=== PATIENT | male | born 2000 | race Caucasian/White ===

== ENCOUNTER 2022-09-01 12:16 | Inpatient (IN) ==
[2022-09-01] MEDS ORDERED: KETOROLAC TROMETHAMINE 15 MG/ML VIAL IV STA (13:11)
[2022-09-01] MEDS ORDERED: SODIUM CHLORIDE 0.9% 1000ML 1,000 ML IV STA (13:11)
--- NOTE | 2022-09-01 13:14 | Emergency Department Note ---
ED Provider Note History of Present Illness Chief Complaint: Vomiting Stated Complaint: VOMITING Time Seen by Provider: 09/01/22 12:58 22-year-old male who presents to the emergency department for evaluation of an illness for the past 6 days. The patient reports that his symptoms started this past Friday with chills, fatigue, nausea and watery diarrhea. Over the past few days, he reports developing notable productive cough and sore throat. He has also had some blood when blowing his nose. The patient was seen at the [facility] urgent care [place] earlier in the week with a negative rapid COVID, flu and strep test. The patient was prescribed Zofran without any significant relief of his nausea. The patient rates his overall discomfort a 9 out of 10. He has not checked his temperature at home, but has been chilled. The patient has been able to tolerate some fluids. Allergies Allergy/AdvReac Type Severity Reaction Status Date / Time No Known Allergies Allergy Verified 09/01/22 15:10 Past Med/Surg History Medical History No significant past medical history Surgical History No significant past surgical history Social History Smoking Status: Never smoker Second Hand Exposure: No; Do You Dip or Chew Tobacco: No; Tobacco Cessation Education Requested by Patient: No Hx Alcohol Use: Yes Hx Substance Use: No Preferred Language: Thai Communication Ability: Effective Mental Health Tech Required: No Beliefs That Will Affect Care: None marital status: Single Current Living Situation: Other Current Living Situation Comment: College student current occupational status: student Other Information That Helps Us Care for You: No Feels Safe at Home: Yes Safety Concerns: Feels Safe At This Time Assistive Devices: None Physical Exam Vital Signs Vital Signs - 24 hr 09/01/22 12:21 Temperature 36.9 C Temperature Source Oral Pulse Rate 101 H Respiratory Rate 20 Respiratory Depth Normal Blood Pressure 106/69 Blood Pressure Mean 81 Blood Pressure Position Sitting Pulse Oximetry 98 Oxygen Delivery Method Room Air Sepsis Recent Fever Within 48 Hours No Sepsis New/Unexplained Change in Mental Status No Sepsis Action Taken by Nursing No Action Required CONSTITUTIONAL: Healthy and well nourished. Patient does not appear toxic. HEENT: Mild rhinorrhea is noted. Examination of the ears that showed TM bulging without air-fluid levels or erythema. Examination the oropharynx shows mild posterior pharyngeal erythema without tonsillar hypertrophy, exudates or postnasal drip. Mucous membranes are dry. NECK: Full active range of motion without discomfort. No JVD or carotid bruit. LYMPHATICS: No cervical chain adenopathy. RESPIRATORY: Clear to auscultation bilaterally with no wheezing, crackles, rhonchi or stridor. CARDIOVASCULAR: Regular rate and rhythm with no murmurs, rubs or gallops. GASTROINTESTINAL: Bowel sounds present in all quadrants. Patient has minimal and generalized abdominal tenderness palpation. Negative McBurney's point tenderness. Negative CVA tenderness. MUSCULOSKELETAL: Full range of motion of all joints without discomfort. INTEGUMENTARY: No rash or other significant dermatologic conditions noted. HEMATOLOGIC: No ecchymosis or petechiae. PSYCHIATRIC: Positive affect. NEUROLOGIC: No focal neurologic deficits noted. Course Course Patient history and physical exam were performed. Nurses notes were reviewed. Vital signs were reviewed and, showing a mild tachycardia of 101 bpm. The patient is otherwise afebrile and not hypoxic or hypotensive. IV access was established, and labs were drawn. The patient was hydrated with a liter of normal saline, and administered IV Toradol. The patient denied any nausea, and refused any IV Zofran. Review of labs shows a hyponatremia of 126, as well as a white count of 3.31 without left shift or bandemia. Platelet count is also low at 102,000. Creatinine is normal. Calcium is also low at 7.7. LFTs are elevated. Upon further questioning, the patient denies any recent alcohol use. He did take Tylenol earlier in the week, as much as 1000 mg every 5 hours, but has not taken any over the last few days. Monoscreen was negative, as well as PCR testing for COVID-19, influenza and RSV. Chest x-ray also shows a developing left lower lobe pneumonia. Upon reevaluation, the patient was unable to provide a stool sample for stool PCR testing. The patient was advised of his abnormal labs, especially his hyponatremia, as well as his developing pneumonia. The patient was hydrated with an additional liter normal saline. An order was placed for IV Zithromax and Rocephin after consulting our ED pharmacist regarding antibiotic choices. The patient agreed to hospitalist evaluation. [facility] and agrees with admission. Please see their dictation for further treatment and final disposition. [facility] the patient told them that in addition to Tylenol, he was also taking DayQuil and NyQuil, which also includes Tylenol. LFTs are therefore likely secondary to Tylenol overuse. A Tylenol level was ordered for the hospitalist service, who also ordered a hepatic ultrasound and hepatitis panel. Administered Medications Discontinued Medications Diphenhydramine HCl (Diphenhydramine Capsule 25 Mg Cap) 25 mg PO NOW ONE Stop: 09/01/22 21:16 Last Admin: 09/01/22 21:43 Dose: 25 mg Documented By: EKF Famotidine (Famotidine 40 Mg Tablet) 40 mg PO NOW ONE Stop: 09/01/22 20:00 Last Admin: 09/01/22 20:59 Dose: 40 mg Documented By: EKChriss Sodium Chloride (Nss 1000ml) 1,000 mls @ 999 mls/hr IV .Q1H1M STA Stop: 09/01/22 14:11 Last Infusion: 09/01/22 14:42 Dose: 0 mls/hr Documented By: Admin: 09/01/22 13:24 Dose: 999 mls/hr Documented By: BHAVYA Ceftriaxone Sodium (Rocephin) 2,000 mg in 70 mls @ 140 mls/hr IV NOW STA Stop: 09/01/22 14:49 Last Infusion: 09/01/22 15:12 Dose: 0 mls/hr Documented By: Admin: 09/01/22 14:41 Dose: 140 mls/hr Documented By: BHAVYA Azithromycin 500 mg/ Dextrose 255 mls @ 127.5 mls/hr IV NOW STA Stop: 09/01/22 16:19 Last Infusion: 09/01/22 17:48 Dose: 0 mls/hr Documented By: Admin: 09/01/22 15:14 Dose: 127.5 mls/hr Documented By: BHAVYA Sodium Chloride (Nss 1000ml) 1,000 mls @ 999 mls/hr IV .Q1H1M ONE Stop: 09/01/22 15:24 Last Infusion: 09/01/22 16:30 Dose: 0 mls/hr Documented By: Admin: 09/01/22 14:41 Dose: 999 mls/hr Documented By: BHAVYA Sodium Phosphate 12 mmol/ (Sodium Chloride) 254 mls @ 88 mls/hr IV ONE ONE Stop: 09/01/22 18:23 Last Infusion: 09/01/22 19:56 Dose: 0 mls/hr Documented By: Admin: 09/01/22 16:52 Dose: 88 mls/hr Documented By: MANUEL Ketorolac Tromethamine (Ketorolac Tromethamine 15 Mg/Ml Vial) 10 mg IV NOW STA Stop: 09/01/22 13:12 Last Admin: 09/01/22 13:25 Dose: 10 mg Documented By: BHAVYA Simethicone (Simethicone 80 Mg Chew) 80 mg PO NOW ONE Stop: 09/01/22 20:00 Last Admin: 09/01/22 20:58 Dose: 80 mg Documented By: EKF Medical Decision Making Medical Records Attestation: I reviewed the patient's medical records. Home Medications was personally reviewed by me Laboratory Data Attestation: I reviewed the patient's lab results. 09/01/22 13:22 09/01/22 13:22 Lab Results 09/01/22 09/01/22 09/01/22 Range/Units 13:22 13:22 13:22 WBC 3.31 L (4.8-10.8) K/ul RBC 4.54 L (4.70-6.10) M/uL Hgb 14.7 (14.0-18.0) g/dl Hct 39.3 L (42.0-52.0) % MCV 86.6 (80.0-100.0) fL MCH 32.4 (25.0-34.0) pg MCHC 37.4 H (32.0-36.0) g/dL RDW Std Deviation 38.7 (36.4-46.3) fL RDW Coeff of Chika 12.2 (11.5-14.5) % Plt Count 102 L (130-400) K/uL MPV 10.7 (9.4-12.4) fL Immature Gran % (Auto) 0.6 % Neut % (Auto) 58.6 % Lymph % (Auto) 36.0 % Will % (Auto) 4.5 % Eos % (Auto) 0.0 % Baso % (Auto) 0.3 % Neut # (Auto) 1.94 (1.40-6.50) K/uL Lymph # (Auto) 1.19 L (1.2-3.4) K/uL Will # (Auto) 0.15 (0.11-0.59) K/uL Eos # (Auto) 0.00 (0-0.50) K/uL Baso # (Auto) 0.01 (0-0.2) K/uL Immature Gran # (Auto) 0.02 (0.01-0.20) K/uL PT INR Sodium 126 L (136-145) mmol/L Potassium 4.0 (3.5-5.1) mmol/L Chloride 90 L (98-107) mmol/L Carbon Dioxide 29 (21-32) mmol/L Anion Gap 7 (3-11) BUN 16 (6-23) mg/dl Creatinine 1.15 (0.6-1.4) mg/dl Est Cr Clr Drug Dosing 103.2 ml/min Est GFR ( Amer) 105.6 ml/min Est GFR (Non-Af Amer) 91.1 ml/min BUN/Creatinine Ratio 13.9 (10-20) Glucose 109 H (70-99(Fasting)) mg/dl Calcium 7.7 L (8.6-10.3) mg/dl Phosphorus 2.0 L (2.5-4.9) mg/dl Magnesium 1.8 (1.7-2.4) mg/dl Total Bilirubin 0.7 (0.2-1.0) mg/dl AST 162 H (13-39) U/L ALT 67 H (7-52) U/L Alkaline Phosphatase 57 (34-104) U/L Total Protein 6.2 (6.0-8.3) gm/dl Albumin 3.6 (3.4-5.0) gm/dl Globulin 2.6 (2.5-4.0) gm/dl Albumin/Globulin Ratio 1.4 (0.9-2) SARS-CoV-2 (PCR) (Negative) Monoscreen Negative (Negative) Influenza Type A (PCR) (Neg) Influenza Type B (PCR) (Neg) RSV (RT-PCR) (Neg) 09/01/22 09/01/22 Range/Units 13:22 13:27 WBC (4.8-10.8) K/ul RBC (4.70-6.10) M/uL Hgb (14.0-18.0) g/dl Hct (42.0-52.0) % MCV (80.0-100.0) fL MCH (25.0-34.0) pg MCHC (32.0-36.0) g/dL RDW Std Deviation (36.4-46.3) fL RDW Coeff of Chika (11.5-14.5) % Plt Count (130-400) K/uL MPV (9.4-12.4) fL Immature Gran % (Auto) % Neut % (Auto) % Lymph % (Auto) % Will % (Auto) % Eos % (Auto) % Baso % (Auto) % Neut # (Auto) (1.40-6.50) K/uL Lymph # (Auto) (1.2-3.4) K/uL Will # (Auto) (0.11-0.59) K/uL Eos # (Auto) (0-0.50) K/uL Baso # (Auto) (0-0.2) K/uL Immature Gran # (Auto) (0.01-0.20) K/uL PT Cancelled INR Cancelled Sodium (136-145) mmol/L Potassium (3.5-5.1) mmol/L Chloride (98-107) mmol/L Carbon Dioxide (21-32) mmol/L Anion Gap (3-11) BUN (6-23) mg/dl Creatinine (0.6-1.4) mg/dl Est Cr Clr Drug Dosing ml/min Est GFR ( Amer) ml/min Est GFR (Non-Af Amer) ml/min BUN/Creatinine Ratio (10-20) Glucose (70-99(Fasting)) mg/dl Calcium (8.6-10.3) mg/dl Phosphorus (2.5-4.9) mg/dl Magnesium (1.7-2.4) mg/dl Total Bilirubin (0.2-1.0) mg/dl AST (13-39) U/L ALT (7-52) U/L Alkaline Phosphatase (34-104) U/L Total Protein (6.0-8.3) gm/dl Albumin (3.4-5.0) gm/dl Globulin (2.5-4.0) gm/dl Albumin/Globulin Ratio (0.9-2) SARS-CoV-2 (PCR) NEGATIVE (Negative) Monoscreen (Negative) Influenza Type A (PCR) Negative (Neg) Influenza Type B (PCR) Negative (Neg) RSV (RT-PCR) Negative (Neg) Imaging Data Attestation: I personally reviewed and interpreted this imaging study as follows: My Impression: My interpretation of reportable chest x-ray shows a left lower lobe pneumonia. Radiologist report was also reviewed with concurrence. Radiologist's Impression: Chest X-Ray 09/01/22 13:12 XR chest 1V portable HISTORY: Cough, illness COMPARISON: None. FINDINGS: There is left lower lobe airspace opacity. The right lung is clear. The heart is normal in size. No pleural effusions. No pneumothorax. IMPRESSION: A left lower lobe airspace opacity consistent with a pneumonia. ACT 112: Negative or not required by law. Electronically signed by: Leonidas Brown M.D. 09/01/2022 1:47 PM MDM Narrative See ED course for further details of today's visit. The patient presents for evaluation of illness now for the past 6 days, with primary complaint of diarrhea, fevers, fatigue and lightheadedness. Work-up today does show evidence for leukopenia, thrombocytopenia and hyponatremia. A portable chest x-ray also showed evidence for left lower lobe pneumonia. With a sodium 126, I do feel that admission for repletion is warranted. The patient was administered IV Zithromax and Rocephin for the pneumonia. The patient does have elevated LFTs, likely secondary to Tylenol overuse per hospitalist evaluation. An additional Tylenol level was ordered. The hyponatremia is likely secondary to vomiting and diarrhea. Impression Left lower lobe pneumonia, Acute hyponatremia, Thrombocytopenia, Leukopenia, Elevated liver enzymes Discharge Plan Visit Data Chief Complaint: Vomiting Stated Complaint: VOMITING ED Provider: Dariel Thakkar ED Midlevel Provider: Kojo Wilkinson Discharge Problem: Left lower lobe pneumonia, Acute hyponatremia, Thrombocytopenia, Leukopenia, Elevated liver enzymes Patient Disposition: Admitted As Inpatient Discharge Instructions Interventions: ED Discharge Assessment Last Done: 09/01/22 16:39 Left lower lobe pneumonia Qualifiers: Pneumonia type: due to unspecified organism Qualified Code(s): J18.9 - Pneumonia, unspecified organism Leukopenia Qualifiers: Leukopenia type: unspecified Qualified Code(s): D72.819 - Decreased white blood cell count, unspecified
[2022-09-01 13:46] LABS: Hematocrit (blood only) 39.3 % (42.0-52.0); Hemoglobin 14.7 g/dl (14.0-18.0); Mean Corpuscular Hemoglobin 32.4 pg (25.0-34.0); Mean Corpuscular Hgb Conc 37.4 g/dL (32.0-36.0); Mean Corpuscular Volume 86.6 fL (80.0-100.0); Mean Platelet Volume 10.7 fL (9.4-12.4); Platelet Count 102 K/uL (130-400); RDW Coefficient of Variation 12.2 % (11.5-14.5); RDW Standard Deviation 38.7 fL (36.4-46.3); Red Blood Count 4.54 M/uL (4.70-6.10); White Blood Count 3.31 K/ul (4.8-10.8)
--- NOTE | 2022-09-01 13:48 | XRay Report ---
XR chest 1V portable HISTORY: Cough, illness COMPARISON: None. FINDINGS: There is left lower lobe airspace opacity. The right lung is clear. The heart is normal in size. No pleural effusions. No pneumothorax. IMPRESSION: A left lower lobe airspace opacity consistent with a pneumonia. ACT 112: Negative or not required by law. Electronically signed by: Leonidas Brown M.D. 09/01/2022 1:47 PM
[2022-09-01 13:56] LABS: Albumin Globulin Ratio 1.4 (0.9-2); Albumin Level 3.6 gm/dl (3.4-5.0); BUN Creatinine Ratio 13.9 (10-20); Bilirubin,Total 0.7 mg/dl (0.2-1.0); Calcium 7.7 mg/dl (8.6-10.3); Creatinine Clr Calc Pharmacy 103.2 ml/min; Est GFR (African American) 105.6 ml/min; Est GFR (Non-African American) 91.1 ml/min; Globulin 2.6 gm/dl (2.5-4.0); Total Protein 6.2 gm/dl (6.0-8.3)
[2022-09-01 14:11] LABS: Influenza A virus by PCR Negative (Neg); Influenza B virus by PCR Negative (Neg); RSV by PCR Negative (Neg); SARS CoV2 RNA(COVID-19) Ceph NEGATIVE (Negative)
[2022-09-01 14:14] LABS: Basophils # (auto) 0.01 K/uL (0-0.2); Basophils % (auto) 0.3 %; Immature Granulocytes # (auto) 0.02 K/uL (0.01-0.20); Immature Granulocytes % (auto) 0.6 %; Lymphocytes # (auto) 1.19 K/uL (1.2-3.4); Monocytes # (auto) 0.15 K/uL (0.11-0.59); Monocytes % (auto) 4.5 %; Neutrophils # (auto) 1.94 K/uL (1.40-6.50); Neutrophils % (auto) 58.6 %
[2022-09-01] MEDS ORDERED: cefTRIAXone SODIUM 2,000 MG/70 ML BAG IV STA (14:20)
[2022-09-01] MEDS ORDERED: AZITHROMYCIN 500 MG in DEXTROSE 5% 250 ML IV STA (14:20)
[2022-09-01] MEDS ORDERED: SODIUM CHLORIDE 0.9% 1000ML 1,000 ML IV ONE (14:24)
--- NOTE | 2022-09-01 14:36 | History & Physical Report ---
Date of Service September 01, 2022 Assessment & Plan (1) Left lower lobe pneumonia: Plan: Community-acquired pneumonia Patient with productive cough, fever, chills and evidence of left lower lobe pneumonia on chest x-ray He is tachycardic, but is not hypotensive and is without leukocytosis/left shift. Creatinine is normal, transaminitis is present but suspect this is from Tylenol use not reflective of endorgan ischemia Given concurrent diarrhea and hyponatremia will order Legionella antigen, and atypical coverage with azithromycin May also have solute depletion hyponatremia due to poor intake for several days Hyponatremic with hypophosphatemia. Sodium phosphate x1 IV infusion ordered BMP trended Transaminitis Suspect due to Tylenol up to a gram total daily dose while taking both Tylenol, NyQuil, and DayQuil for symptoms No prior history of liver disease, patient denies alcohol intake in the last week. Denies binge drinking prior Hepatitis panel pending, liver ultrasound pending, Tylenol level pending DVT prophylaxis: SCDs Disposition: Medical surgical Diet: Regular CODE STATUS: Heart healthy (2) Elevated liver enzymes: (3) No significant past surgical history: History of Present Illness Primary Care Provider: [facility] 22yo M with chills, fatigue, nausea, diarrhea, prodcutive cough, and sore throat. He is hyponatremic with a new transaminitis. He is recommended for admission for tx of PNA with hyponatremia and transaminitis eval Patient presents with 4 to 5 days of worsening fever, chills, night sweats, cough with green sputum, diarrhea, and poor appetite. He reports that his symptoms have gradually worsened and he has felt like he has had gradually worsening fevers with easy exercise fatigue and limitation. He is not hypoxic. Has not been eating and drinking well, and has been having bowel movements up to every 2 hours. He drinks social alcohol rarely, none recently. No tobacco or vape product use. No recent sick contacts. He is seen at the bedside with his girlfriend present. Monoscreen is negative, COVID and flu are negative. Patient has been taking Tylenol 500 mg 2 tablets around every 6 hours, up to around 4 g total per day. In addition to this he was taking DayQuil every 4-6 hours, in addition to NyQuil at night. Total Tylenol load likely around 8 g daily, has not taken any Tylenol in the last 2 days. He does not have any history of IV drug use or liver disease. Takes no prescription medications, has no chronic medical problems. He is a sophomore at [employer]. Medical History: Reviewed Medications: Reviewed Surgical History: Reviewed Family history: Reviewed Allergies: Reviewed Social History: Social etoh use, none recently/preceding week or with tylneol. No tobacco/vape use Code Status: Full Past Med/Surg History Medical History No significant past medical history Surgical History No significant past surgical history Social History Smoking Status: Never smoker Preferred Language: Icelandic marital status: Single current occupational status: student Feels Safe at Home: Yes Review of Systems Review of Systems: All systems reviewed & are unremarkable except as noted in HPI & below Physical Exam Physical Exam: General: A&Ox3. NAD. Cooperative. Skin warm, moist. HEENT: Atraumatic, normocephalic. Vision/hearing intact Pulm: RLL coarse, otherwise clear. No wheezes. No basilar crackles. Symmetrical chest rise. No increased work of breathing. No respiratory distress. Cardiac: RRR, -mrg. Radial pulses intact and symmetrical. Abdominal: Nontender, nondistended, soft. BS present. Ext: Moves all extremities equally, sensation intact to soft touch in hands and feet bilaterally Results & Data Results & Data Vital Signs (Past 12 Hours) Vital Signs Temp Pulse Resp BP Pulse Ox O2 Del Method 09/01/22 12:21 36.9 C 101 H 20 106/69 98 Room Air PG Care Time/CCT Total # of Minutes Spent Total Time Spent with Patient: Total time spent is greater than 50% in coordination of care (as documented) at patient's floor/unit and/or counseling patient: Coding Level of Care Code 50216 INT INP/OBS CARE 2/55MIN Diagnoses Left lower lobe pneumonia J18.9 Pneumonia type: due to unspecified organism Elevated liver enzymes R74.8 No significant past surgical history (1) Left lower lobe pneumonia Pneumonia type: due to unspecified organism Qualified Code(s): J18.9 - Pneumonia, unspecified organism
[2022-09-01 14:38] LABS: Magnesium 1.8 mg/dl (1.7-2.4)
[2022-09-01] MEDS ORDERED: SODIUM PHOSPHATE 3 MMOL/1 ML INFUSION IV STA ×2 (14:57→23:20)
[2022-09-01] MEDS ORDERED: Patient's ALLERGY Info needs ENTERED SCH (15:15)
[2022-09-01] MEDS ORDERED: SODIUM PHOSPHATE 12 MMOL in SODIUM CHLORIDE 0.9% 250 ML IV ONE (15:30)
[2022-09-01 16:24] LABS: Bilirubin Direct 0.1 mg/dl (0-0.2); Bilirubin,Total 0.5 mg/dl (0.2-1.0); Phosphorus 2.3 mg/dl (2.5-4.9); Total Protein 5.2 gm/dl (6.0-8.3)
[2022-09-01 16:36] LABS: INR 1.1 (0.9-1.1); Prothrombin Time 11.6 Seconds (9.0-12.0)
[2022-09-01 17:36] LABS: BUN Creatinine Ratio 14.3 (10-20); Calcium 6.9 mg/dl (8.6-10.3); Creatinine Clr Calc Pharmacy 108.6 ml/min; Est GFR (Non-African American) 94.1 ml/min; Phosphorus 2.4 mg/dl (2.5-4.9); Potassium 3.6 mmol/L (3.5-5.1)
[2022-09-01] MEDS ORDERED: SIMETHICONE 80 MG CHEW PO ONE (19:59)
[2022-09-01] MEDS ORDERED: FAMOTIDINE 40 MG TABLET PO ONE (19:59)
[2022-09-01] MEDS ORDERED: BUTALBITAL/ASPIRIN/CAFFEINE 1 TAB TAB PO ONE ×2 (20:00→20:45)
[2022-09-01] MEDS ORDERED: MELATONIN 3 MG TAB PO PRN (20:30)
[2022-09-01] MEDS ORDERED: diphenhydrAMINE Capsule 25 MG CAP PO ONE (21:15)
[2022-09-01] MEDS ORDERED: KETOROLAC TROMETHAMINE 15 MG/ML VIAL IV ONE (23:11)
[2022-09-01 23:13] LABS: Calcium 7.2 mg/dl (8.6-10.3); Creatinine Clr Calc Pharmacy 113.7 ml/min; Est GFR (African American) 115.2 ml/min; Est GFR (Non-African American) 99.4 ml/min; Phosphorus 1.8 mg/dl (2.5-4.9)
[2022-09-01 23:16] LABS: Appearance Urine Clear (Clear); Bacteria Urine Automated Negative (Negative); Bilirubin Urine Negative (Negative); Blood Urine 3+ (Negative); Color Urine Dark Yellow; Glucose Urine UA Negative (Negative); Ketones Urine Negative (Negative); Leukocyte Esterase Urine Negative (Negative); Nitrite Urine Negative (Negative); Protein Urine 2+ (Negative); RBC Urine Automated 0-4 /hpf (0-4); Specific Gravity Urine 1.022 (1.000-1.030); Urobilinogen Urine Negative (Negative)
[2022-09-02] MEDS ORDERED: SODIUM PHOSPHATE 21 MMOL in SODIUM CHLORIDE 0.9% 500 ML IV ONE
[2022-09-02] MEDS: BENZONATATE 100 MG CAPSULE PO PRN ×3 (00:29→21:45)
[2022-09-02] MEDS: guaiFENesin 600 MG TABCR PO PRN ×2 (00:29→21:44)
[2022-09-02 04:42] LABS: Hematocrit (blood only) 39.3 % (42.0-52.0); Hemoglobin 14.1 g/dl (14.0-18.0); Mean Corpuscular Hgb Conc 35.9 g/dL (32.0-36.0); Mean Corpuscular Volume 89.1 fL (80.0-100.0); Mean Platelet Volume 10.8 fL (9.4-12.4); Platelet Count 108 K/uL (130-400); RDW Coefficient of Variation 12.6 % (11.5-14.5); RDW Standard Deviation 41.6 fL (36.4-46.3); Red Blood Count 4.41 M/uL (4.70-6.10); White Blood Count 4.33 K/ul (4.8-10.8)
[2022-09-02 04:51] LABS: Basophils # (auto) 0.01 K/uL (0-0.2); Basophils % (auto) 0.2 %; Immature Granulocytes # (auto) 0.02 K/uL (0.01-0.20); Immature Granulocytes % (auto) 0.5 %; Lymphocytes % (auto) 41.6 %; Monocytes # (auto) 0.17 K/uL (0.11-0.59); Monocytes % (auto) 3.9 %; Neutrophils # (auto) 2.33 K/uL (1.40-6.50); Neutrophils % (auto) 53.8 %
[2022-09-02 05:04] LABS: BUN Creatinine Ratio 13.4 (10-20); Calcium 7.5 mg/dl (8.6-10.3); Creatinine Clr Calc Pharmacy 108.6 ml/min; Est GFR (Non-African American) 94.1 ml/min; Potassium 4.4 mmol/L (3.5-5.1)
[2022-09-02 05:44] LABS: Adenovirus F 40/41 PCR Not Detected (NotDetected); Astrovirus PCR Not Detected (NotDetected); Campylobacter PCR Not Detected (NotDetected); Cryptosporidium PCR Not Detected (NotDetected); Cyclospora cayetanensis PCR Not Detected (NotDetected); Entamoeba histolytica PCR Not Detected (NotDetected); Enteropathogenic E.coli (EPEC) Not Detected (NotDetected); Enterotoxigenic E.coli (ETEC) Not Detected (NotDetected); Giardia lamblia PCR Not Detected (NotDetected); Norovirus GI/GII PCR Not Detected (NotDetected); Plesiomonas shigelloides PCR Not Detected (NotDetected); Rotavirus A PCR Not Detected (NotDetected); Salmonella PCR Not Detected (NotDetected); Sapovirus PCR Not Detected (NotDetected); Shiga-like Toxin E.coli (STEC) Not Detected (NotDetected); Shigella/Enteroinvasive E.coli Not Detected (NotDetected); Vibrio cholerae PCR Not Detected (NotDetected); Vibrio species PCR Not Detected (NotDetected); Yersinia enterocolitica PCR Not Detected (NotDetected)
[2022-09-02 06:11] LABS: Enteroaggregative E.coli(EAEC) DETECTED (NotDetected)
--- NOTE | 2022-09-02 07:03 | Ultrasound Report ---
ULTRASOUND RIGHT UPPER QUADRANT ABDOMEN CLINICAL HISTORY: Elevated hepatic transaminases. COMPARISON STUDY: No priors. TECHNIQUE: Real-time, grayscale, and color flow sonography of the right upper quadrant of the abdomen was performed. Images are reviewed in the transverse and longitudinal planes. FINDINGS: Liver: The liver is normal in size and echotexture. There is no intrahepatic biliary ductal dilatatio n. The main portal vein is patent. Gallbladder: The gallbladder is contracted. No shadowing gallstones are identified. There is no gallb ladder wall thickening or pericholecystic fluid. A sonographic Patton's sign is reportedly absent. Th e common bile duct measures up to 0.3 cm in diameter. Pancreas: Visualized portions of the pancreatic head are normal in appearance. The majority of the pa ncreas is obscured by overlying bowel gas. Right kidney: Survey images of the right kidney demonstrate normal size and echotexture. There is no hydronephrosis. Ascites: None. IMPRESSION: Unremarkable sonographic examination of the right upper quadrant. No gallstones are seen. ACT 112: Negative or not required by law. Electronically signed by: Dariel Fernandez M.D. 09/02/2022 7:01 AM
[2022-09-02] MEDS: IBUPROFEN 200 MG TAB PO PRN ×2 (08:55→21:43)
[2022-09-02] MEDS ORDERED: AZITHROMYCIN 250 MG in DEXTROSE 5% 250 ML IV SCH (09:00)
[2022-09-02] MEDS ORDERED: guaiFENesin 600 MG TABCR PO SCH (09:00)
[2022-09-02] MEDS ORDERED: BENZONATATE 100 MG CAPSULE PO SCH (09:00)
[2022-09-02] MEDS ORDERED: cefTRIAXone SODIUM 2,000 MG in DEXTROSE 5% 50 ML IV SCH (15:00)
--- NOTE | 2022-09-02 15:15 | Hospitalist Progress Note ---
Date of Service September 02, 2022 Assessment & Plan (1) Left lower lobe pneumonia: Plan: Acute/stable Community-acquired pneumonia who met sepsis with 2/4 criteria including wbc count <4,000 + tachycardia (fever did not manifest until AFTER patient was admitted) Patient with productive cough, fever, chills and evidence of left lower lobe pneumonia on chest x-ray Given concurrent diarrhea and hyponatremia will order Legionella antigen, and atypical coverage with azithromycin Continue Ceftriaxone 2g IV daily, vargas Hartmann - Has not been hypoxic at all since admission (2) Infectious diarrhea: Plan: Acute/unstable - Stool pcr positive for EAEC - Supportive treatment to include antiemetics, fluids, electrolyte repletion - Given his fever, hyponatremia/dehydration, I do believe it is appropriate to treat him - Up to Date supports use of Azithromycin 500mg x 3 days - Will give him another 250mg IV now and then one more 500mg IV dose tomorrow then stop - Believe he would benefit from another liter of IVF, ordered wide open (3) Acute hyponatremia: Plan: Acute/stable - likely reflecting hypovolemic hyponatremia - Concurrent hypophosphatemia, sodium phosphate replacement ordered - Chemistries reviewed, admitting Na 126 - Na trending up since admission with 2L of NSS to 130 on chemistry panel today - Continue to push oral hydration - Repeat chemistry panel in AM (4) Elevated liver enzymes: Plan: Acute/unstable Suspect due to Tylenol up to a gram total daily dose while taking both Tylenol, NyQuil, and DayQuil for symptoms No prior history of liver disease, patient denies alcohol intake in the last week. Denies binge drinking prior Hepatitis panel pending, Tylenol level <3 - Unremarkable liver ultrasound Plan Repeat labs in AM. Hopefully will be able to discharge tomorrow. Plan to be d/w Dr. Sarabia. Admission and Anticipated Discharge Date Admission Date: September 01, 2022 Subjective Patient was seen on daily rounds this morning. He is resting comfortably in bed, unaccompanied. He reports that his cough has improved. Denies shortness of b reath. Did have a fever this AM of 38.8C for which he was medicated with Ibuprofen with improvement. No chest pain, n/v. Diarrhea improving. Physical Exam Physical Exam: GENERAL: 22 yo well-developed, well-nourished M. AA&Ox 4. NAD. LUNGS: Clear to auscultation bilaterally w/o w/r/r. CARDIOVASCULAR: Mildly tachycardic. No m/g/r ABDOMEN: Soft, non-tender and non-distended. BS normoactive x 4 quad. EXTREMITIES: No edema. Non-tender. Peripheral pulses +2/4. Results & Data Results & Data Vital Signs (Past 12 Hours) Vital Signs Temp Pulse Resp BP Pulse Ox O2 Del Method 09/02/22 09:49 37.5 C 09/02/22 08:33 38.2 C H 101 H 95 Room Air 09/02/22 08:00 38.8 C H 98 H 18 114/71 94 Room Air 09/02/22 03:42 37.2 C 96 H 17 130/75 95 Room Air Laboratory Results 09/02/22 03:44 09/02/22 03:44 PG Care Time/CCT Total # of Minutes Spent Total Time Spent with Patient: Total time spent is greater than 50% in coordination of care (as documented) at patient's floor/unit and/or counseling patient: Coding Level of Care Code 36553 SUB INP/OBS CARE 3/50MIN Diagnoses Left lower lobe pneumonia J18.9 Pneumonia type: due to unspecified organism Infectious diarrhea A09 Acute hyponatremia E87.1 Elevated liver enzymes R74.8 (1) Left lower lobe pneumonia Pneumonia type: due to unspecified organism Qualified Code(s): J18.9 - Pneumonia, unspecified organism
[2022-09-02] MEDS ORDERED: SODIUM CHLORIDE 0.9% 1000ML 1,000 ML IV SCH ×2 (16:14→16:15)
[2022-09-02] MEDS ORDERED: AZITHROMYCIN 250 MG in DEXTROSE 5% 250 ML IV ONE (16:15)
[2022-09-02] MEDS ORDERED: LOPERAMIDE HCL 2 MG CAP PO STA (20:39)
[2022-09-02] MEDS ORDERED: SIMETHICONE 80 MG CHEW PO ONE (20:39)
[2022-09-03 07:39] LABS: Hemoglobin 14.6 g/dl (14.0-18.0); Mean Corpuscular Hemoglobin 32.1 pg (25.0-34.0); Mean Corpuscular Hgb Conc 35.6 g/dL (32.0-36.0); Mean Corpuscular Volume 90.1 fL (80.0-100.0); Mean Platelet Volume 10.3 fL (9.4-12.4); Platelet Count 150 K/uL (130-400); RDW Coefficient of Variation 12.9 % (11.5-14.5); RDW Standard Deviation 42.4 fL (36.4-46.3); Red Blood Count 4.55 M/uL (4.70-6.10); White Blood Count 5.36 K/ul (4.8-10.8)
[2022-09-03 08:03] LABS: Immature Granulocytes # (auto) 0.02 K/uL (0.01-0.20); Immature Granulocytes % (auto) 0.4 %; Lymphocytes # (auto) 1.66 K/uL (1.2-3.4); Monocytes # (auto) 0.25 K/uL (0.11-0.59); Monocytes % (auto) 4.7 %; Neutrophils # (auto) 3.43 K/uL (1.40-6.50); Neutrophils % (auto) 63.9 %
[2022-09-03 08:12] LABS: Albumin Level 3.3 gm/dl (3.4-5.0); BUN Creatinine Ratio 12.2 (10-20); Bilirubin Direct 0.3 mg/dl (0-0.2); Bilirubin,Total 0.8 mg/dl (0.2-1.0); Calcium 7.8 mg/dl (8.6-10.3); Creatinine Clr Calc Pharmacy 148.4 ml/min; Est GFR (African American) 147.5 ml/min; Est GFR (Non-African American) 127.3 ml/min; Magnesium 2.1 mg/dl (1.7-2.4); Potassium 4.5 mmol/L (3.5-5.1); Total Protein 5.6 gm/dl (6.0-8.3)
[2022-09-03] MEDS: BENZONATATE 100 MG CAPSULE PO PRN (08:20)
[2022-09-03] MEDS ORDERED: AZITHROMYCIN 500 MG in DEXTROSE 5% 250 ML IV ONE (09:00)
--- NOTE | 2022-09-03 12:03 | Discharge Summary ---
Date of Service September 03, 2022 Admission HPI Per Admitting Provider 22yo M with chills, fatigue, nausea, diarrhea, prodcutive cough, and sore throat. He is hyponatremic with a new transaminitis. He is recommended for admission for tx of PNA with hyponatremia and transaminitis eval Patient presents with 4 to 5 days of worsening fever, chills, night sweats, cough with green sputum, diarrhea, and poor appetite. He reports that his symptoms have gradually worsened and he has felt like he has had gradually worsening fevers with easy exercise fatigue and limitation. He is not hypoxic. Has not been eating and drinking well, and has been having bowel movements up to every 2 hours. He drinks social alcohol rarely, none recently. No tobacco or vape product use. No recent sick contacts. He is seen at the bedside with his girlfriend present. Monoscreen is negative, COVID and flu are negative. Patient has been taking Tylenol 500 mg 2 tablets around every 6 hours, up to around 4 g total per day. In addition to this he was taking DayQuil every 4-6 hours, in addition to NyQuil at night. Total Tylenol load likely around 8 g daily, has not taken any Tylenol in the last 2 days. He does not have any history of IV drug use or liver disease. Takes no prescription medications, has no chronic medical problems. He is a sophomore at [employer]. Medical History: Reviewed Medications: Reviewed Surgical History: Reviewed Family history: Reviewed Allergies: Reviewed Social History: Social etoh use, none recently/preceding week or with tylneol. No tobacco/vape use Code Status: Full Principal Diagnosis 1. Left lower lobe pneumonia 2. Hypovolemic hyponatremia d/t dehydration 3. Infectious diarrhea 4. Elevated LFTs Discharge Exam GENERAL: 22 yo well-developed, well-nourished M. AA&Ox 4. NAD. LUNGS: Clear to auscultation bilaterally w/o w/r/r. CARDIOVASCULAR: Mildly tachycardic. No m/g/r ABDOMEN: Soft, non-tender and non-distended. BS normoactive x 4 quad. No organomegaly. EXTREMITIES: No edema. Non-tender. Peripheral pulses +2/4. Discharge Data Allergies Allergy/AdvReac Type Severity Reaction Status Date / Time No Known Allergies Allergy Verified 09/01/22 15:10 Consultations 09/01/22 14:09 ED Decision to Admit Stat Ordered Studies Chest X-Ray 09/01/22 13:12 XR chest 1V portable HISTORY: Cough, illness COMPARISON: None. FINDINGS: There is left lower lobe airspace opacity. The right lung is clear. The heart is normal in size. No pleural effusions. No pneumothorax. IMPRESSION: A left lower lobe airspace opacity consistent with a pneumonia. ACT 112: Negative or not required by law. Electronically signed by: Leonidas Brown M.D. 09/01/2022 1:47 PM Liver Ultrasound 09/02/22 00:00 ULTRASOUND RIGHT UPPER QUADRANT ABDOMEN CLINICAL HISTORY: Elevated hepatic transaminases. COMPARISON STUDY: No priors. TECHNIQUE: Real-time, grayscale, and color flow sonography of the right upper quadrant of the abdomen was performed. Images are reviewed in the transverse and longitudinal planes. FINDINGS: Liver: The liver is normal in size and echotexture. There is no intrahepatic biliary ductal dilatation. The main portal vein is patent. Gallbladder: The gallbladder is contracted. No shadowing gallstones are identified. There is no gallbladder wall thickening or pericholecystic fluid. A sonographic Patton's sign is reportedly absent. The common bile duct measures up to 0.3 cm in diameter. Pancreas: Visualized portions of the pancreatic head are normal in appearance. The majority of the pancreas is obscured by overlying bowel gas. Right kidney: Survey images of the right kidney demonstrate normal size and echotexture. There is no hydronephrosis. Ascites: None. IMPRESSION: Unremarkable sonographic examination of the right upper quadrant. No gallstones are seen. ACT 112: Negative or not required by law. Electronically signed by: Dariel Fernandez M.D. 09/02/2022 7:01 AM Hospital Course (1) Left lower lobe pneumonia: Acute/stable Community-acquired pneumonia who met sepsis with 2/4 criteria including wbc count <4,000 + tachycardia (fever did not manifest until AFTER patient was admitted) Patient with productive cough, fever, chills and evidence of left lower lobe pneumonia on chest x-ray Given concurrent diarrhea and hyponatremia will order Legionella antigen, and atypical coverage with azithromycin Continue Ceftriaxone 2g IV daily, vargas Hartmann - Has not been hypoxic at all since admission - Leukopenia and thrombocytopenia have both resolved - To cover for possible bacterial pneumonia, will send home with 7 day course of Augmentin - Continue to use Ibuprofen and avoid tylenol for fever/body aches (2) Infectious diarrhea: Acute/unstable - Stool pcr positive for EAEC - Supportive treatment to include antiemetics, fluids, electrolyte repletion - Given his fever, hyponatremia/dehydration, I do believe it is appropriate to treat him - Up to Date supports use of Azithromycin 500mg x 3 days of which pt received - Now will just require supportive treatment, do not use motility agents such as Lomotil/Imodium (3) Acute hyponatremia: Acute/stable - likely reflecting hypovolemic hyponatremia - Concurrent hypophosphatemia, sodium phosphate replacement ordered - Chemistries reviewed, admitting Na 126 - Na trending up since admission with 2L of NSS to 130, another liter brought him up to 134 - Continue to push oral hydration upon dc (4) Elevated liver enzymes: Acute/unstable Possibly due to Tylenol up to a gram total daily dose while taking both Tylenol, NyQuil, and DayQuil for symptoms No prior history of liver disease, patient denies alcohol intake in the last week. Denies binge drinking prior Hepatitis panel pending, Tylenol level <3 - Unremarkable liver ultrasound - LFTs downtrended on 09/02 but uptrended today, AST 243 (141) and ALT 123 (58) - Ordered CMV and EBV - Could be medication related (Zithromax + Rocephin) can cause this - Will need f/u LFTs in 3-5 days with results CC to PCP Plan Patient is medically stable for discharge. Parents are at bedside, want to take him home. Will have him f/u with his PCP upon return to [place]. He will have repeat bloodwork done to reassess his LFTs with results to be forwarded to his PCP. Excuse given for him to remain off school for minimum of 1 week but ultimately until he is reevaluated by his PCP and felt suitable to return and take his final exams. Plan has been d/w Dr. Sarabia who is in agreement with the aforementioned. Total Time Total Time Spent Total Time Spent (In Minutes): >30 minutes Discharge Plan Discharge Items Patient Disposition: Home - Self-Care Reason For Visit: CAP, TRANSAMINITIS Discharge Diagnosis: pneumonia infectious diarrhea elevated liver function tests Activity: Per Instructions section Non-emergency contact: Primary Care Provider Call non-emergency contact if: you have any medication questions and your symptoms worsen Follow-up/Referrals: [facility] [Primary Care Provider] - Diet: Regular Ambulatory Orders: Comprehensive Metabolic Panel (Routine) Timeframe: [id number] Location: Determined by Patient Ordered By: Malathi Gonzalez Attending Provider Instructions: You were hospitalized due to a left sided pneumonia as well as elevated liver function tests and diarrhea. The diarrhea you were found to have was actually infectious and likely came from a contaminated water source, possibly when you traveled to [place]. In order to treat this, you received 3 doses of IV antibiotics called Zithromax. The remainder of treatment for this includes pushing oral hydration to prevent dehydration and treating any fever. You should follow a BRAT/Y diet which includes bananas, rice, apples/applesauce, toast, and yogurt with live cultures. For the elevated liver function tests, you have been tested for viruses that can cause this such as bon rodgers virus (mononucleosis) and cytomegalovirus. There is no definitive treatment for these viruses, just rest, hydration, and treating fever. For any fever or aches, you should continue to take Ibuprofen and avoid Tylenol. It is possible that the antibiotics you received in the hospital could have contributed to your elevated liver function tests also. You will need to have follow up bloodwork with results forwarded to your primary care provider to ensure that these numbers are returning to normal. Please have this done preferably Wednesday 09/06. Lastly, for your pneumonia, you will be prescribed a course of antibiotics called Augmentin. Please take this medication twice a day until it is gone. While you were treated with antibiotics here in the hospital for your pneumonia, the duration was not long enough to cover if your pneumonia was caused by a b acteria and not a virus. The Augmentin has been sent to your pharmacy on file, please start taking it tomorrow morning (09/04/22). Take it with food or milk to minimize upset stomach. Nausea and diarrhea are common side effects but should be made better by taking with food and eating a BRAT diet as instructed. An excuse has been written for you to remain off school until you can follow up with your family healthcare provider when you return home. They may need to provide a written note to the university to indicate that you are able to return to school to complete your finals. Please contact them as soon as you get home to arrange follow up. Pending Studies at Discharge: Yes Studies:: bon rodgers virus, cytomegalovirus testing Stand-Alone Forms: [facility] [place], Work/School Release, Smoking Cessation Medications and DC Order Prescriptions: New amoxicillin-pot clavulanate 875-125 mg tablet 1 tab PO BID Qty: 14 0RF Discharge Orders: Discharge Order (Routine); Ordered 09/03/22 Ordered By: Malathi Javier Admission Data Admit Date/Time: 09/01/22 14:54 Attending Provider: Wood Sarabia Admit Provider: Clifford Salazar Primary Care Provider: [facility] Other Providers: Clifford Salazar Other Interventions: Discharge Summary Assessment (RN) Last Done: 09/03/22 10:16 Coding Level of Care Code 36109 INP/OBS DISCH >30 MIN Diagnoses Left lower lobe pneumonia J18.9 Pneumonia type: due to unspecified organism Infectious diarrhea A09 Acute hyponatremia E87.1 Elevated liver enzymes R74.8
== END 2022-09-03 13:05 | disposition home or self-care (01) | DRG 871 ==
LOC: ED 12:16 → SUATTDRO 14:54 → 3E 14:54